=== PATIENT | female | born 2000 | race Two or more races ===

== ENCOUNTER 2020-09-25 13:05 | Emergency (ER) | payer SELFPAY ==
[~2020-09-25] VITALS: Ht 157.5 cm; Wt 64.4 kg
--- NOTE | 2020-09-25 13:40 | NUR ---
Patient discharged to home in stable condition. Written and verbal after care instructions given. Patient verbalizes understanding of instructions. Stressed follow up or return to ER for worsening s/s.
== END 2020-09-25 13:40 | disposition home or self-care (01) ==
LOC: ER 13:05
DX: R07.89 Other chest pain (principal); F41.9 Anxiety disorder, unspecified; J45.909 Unspecified asthma, uncomplicated
CPT/HCPCS: 71045; A4663